=== PATIENT | male | born 1970 | race Caucasian/White ===

== ENCOUNTER 2017-01-05 07:36 | Day surgery (SDC) | payer BC ==
[2017-01-01 12:02] LABS: BASOPHILS 0.4 %; BASOPHILS ABSOLUTE 0.03 10/3/uL (0.0-0.16); EOSINOPHILS 1.2 %; EOSINOPHILS ABSOLUTE 0.09 10/3/uL (0.0-0.53); IMMATURE GRANULOCYTES 0.4 %; IMMATURE GRANULOCYTES ABSOLUTE 0.03 10/3/uL (0.0-0.11); LYMPHOCYTES 39.9 %; LYMPHOCYTES ABSOLUTE 2.91 10/3/uL (0.67-4.30); MEAN CORPUS HGB CONC 33.3 g/dL (32.0-36.0); MONOCYTES 5.9 %; MONOCYTES ABSOLUTE 0.43 10/3/uL (0.21-1.20); NEUTROPHILS 52.2 %; NEUTROPHILS ABSOLUTE 3.81 10/3/uL (2.02-8.40); PLATELET COUNT 340 10/3/uL (150-400); RBC DISTRIBUTION WIDTH 14.7 % (12.0-16.0); RED CELL COUNT 4.84 10/6/uL (4.7-6.1); WHITE BLOOD CELLS 7.3 10/3/uL (4.5-10.5)
[2017-01-01 12:04] LABS: MANUAL DIFF NO %
[2017-01-01 12:21] LABS: BUN (BLOOD UREA NITROGEN) 14 MG/DL (6-23); CHLORIDE, SERUM 103 MMOL/L (96-112); CO2 (CARBON DIOXIDE) 29 MMOL/L (24-34); CREATININE 0.91 MG/DL (0.70-1.30); GFR AFRICAN AMERICAN 115 ML/MIN (>=60); GFR NON AFRICAN AMERICAN 99 ML/MIN (>=60); GLUCOSE, SERUM 142 MG/DL (60-99); POTASSIUM, SERUM 4.8 MMOL/L (3.5-5.3); SODIUM, SERUM 140 MMOL/L (135-148)
--- NOTE | ~2017-01-05 | OP ---
Record Of Operation [facility] [address] [place]. [address] NAME: SARITA BERNARD : 66 STATUS : [facility]#: [id number] AGE: 46 ADM/REG DATE : 01/05/17 MR#: [id number] REPORT SERV DATE: 01/05/17 DICTATED BY: BLADMIIR STEPHENS DATE: 01/05/17 REPORT STATUS : Draft TRANSCRIBED BY: MODL DATE: 01/05/17 DATE OF PROCEDURE: 01/05/2017 PREOPERATIVE DIAGNOSIS: Right-sided posterior subcutaneous neck mass. POSTOPERATIVE DIAGNOSIS: Right-sided posterior subcutaneous neck mass. PROCEDURE PERFORMED: Excision of right-sided subcutaneous posterior neck mass greater than 3 cm. SURGEON: Bladimir Stephens M.D. ANESTHESIA: General. ESTIMATED BLOOD LOSS: 5 mL. SPECIMENS REMOVED: Posterior subcutaneous neck mass that grossly resembles fatty tissue. BRIEF HISTORY: Mr. Bernard is a 46-year-old gentleman who has noticed an asymmetrical protrusion on the posterior aspect of his right neck above his hairline. He states this has been growing and becoming exquisitely tender. Imaging of this confirmed no suspicious abnormalities, and I felt this was most likely fatty tissue; however, the patient had great concerns that it was growing and causing pain and discomfort and opted for excision. The risks, benefits, and alternatives of surgery were fully explained to him in detail. He wished to proceed. FINDINGS AT TIME OF PROCEDURE: This grossly resembled fatty tissue and this did not traverse the muscular fascia. DETAILS OF PROCEDURE: Following informed consent, the area was identified by the patient and marked by myself in the preoperative holding area. This was confirmed to be the proper site and location by both the patient and myself. The patient was then transferred to operative suite. After successful induction of anesthesia, he was positioned prone on the OR table. Using hair clippers, we trimmed his hair. The mass was above his hairline. There was an obvious asymmetrical protrusion on the right posterior side compared to the left; however, it was very difficult to define a discrete mass because he had a very thick neck. We then prepped the area and draped the area in the usual sterile fashion. An incision was made directly on top of this palpable protrusion. Skin flaps were created using skin hooks and cautery. Multilobulated fatty tissue was then excised. This did not traverse the muscular fascia. We removed this. It measured just over 3 cm grossly, and we palpated the area and I felt no suspicious masses whatsoever. The wound was copiously irrigated. Hemostasis was secured with cautery. Skin edges were reapproximated using 3-0 Vicryl subdermals followed by 4-0 Monocryl subcuticular suture and Dermabond. At the completion of the case, all sponge and needle counts were correct. The patient was extubated and transferred to the recovery room in satisfactory condition having suffered no apparent perioperative complications. Record Of Operation [facility] [id number] [facility] [place]. [address] NAME: SARITA BERNARD SULY : 66 STATUS : [facility]#: [id number] AGE: 46 ADM/REG DATE : 01/05/17 MR#: [id number] REPORT SERV DATE: 01/05/17 DICTATED BY: BLADIMIR STEPHENS DATE: 01/05/17 REPORT STATUS : Draft TRANSCRIBED BY: PATSY DATE: 01/05/17 TERRI/PATSY Bladimir Stephens M.D. / [id number] CC: Ab Larsen M.D.
[~2017-01-05 07:36] MED LIST: HUMIRA PEN SC; TEMOVATE CREAM30 GM TOP; WELLSR150 PO
== END 2017-01-05 12:11 | disposition home or self-care (01) ==
LOC: SDC 07:36
PROVIDERS: Surgery
PROC: 0JB50ZZ Excision of Left Neck Subcutaneous Tissue and Fascia, Open Approach (ICD-10-PCS; principal; 2017-01-05 08:45)
DX: D17.0 Benign lipomatous neoplasm of skin and subcutaneous tissue of head, face and neck (principal); G47.33 Obstructive sleep apnea (adult) (pediatric); L40.50 Arthropathic psoriasis, unspecified; Z79.899 Other long term (current) drug therapy; F32.9 Major depressive disorder, single episode, unspecified; Z98.890 Other specified postprocedural states; Z99.81 Dependence on supplemental oxygen; F17.210 Nicotine dependence, cigarettes, uncomplicated
CPT/HCPCS: 80048; 85025; 88304; 94640; A9270-GY; J0690; J2250; J2405; J2710; J3010